=== PATIENT | female | born 1960 | race Caucasian/White ===

== ENCOUNTER 2022-04-19 08:59 | Outpatient (CLI) | payer BC, SELFPAY ==
[2022-04-19 09:55] LABS: Hematocrit 43.2 % (33.0-51.0); Hemoglobin* 14.3 gm/dL (12.0-16.0); Mean Corpuscular HGB Conc 33 gm/dL (32-36); Mean Corpuscular Hemoglobin 30 pg (26-34); Mean Corpuscular Volume 90 fL (80-100); Platelet Count* 339 K/uL (140-440); Red Blood Count 4.79 m/uL (4.00-5.20); White Blood Count* 8.98 K/uL (4.50-11.00)
[2022-04-19 10:00] LABS: Slide Review Reflex No
[2022-04-19 16:10] LABS: Albumin* 4.6 g/dL (3.3-5.0); Chloride* 94 mmol/L (96-114); Sodium* 135 mmol/L (135-149)
[2022-04-19 16:11] LABS: Potassium* 3.4 mmol/L (3.6-5.1)
[2022-04-19 16:12] LABS: Cholesterol* 234 mg/dL (90-199)
[2022-04-19 16:13] LABS: Alkaline Phosphatase* 95 U/L (40-150); Aspartate Amino Transferase* 25 U/L (12-35); Bilirubin Total* 0.5 mg/dL (0.1-1.5); Blood Urea Nitrogen* 14 mg/dL (7-30); Carbon Dioxide* 32 mmol/L (20-32); Creatinine* 0.8 mg/dL (0.5-1.5); Estimated Glomerular Filt Rate 85 ml/min; Glucose* 96 mg/dL (60-115); Total Protein* 7.9 g/dL (6.0-8.3); Triglycerides* 329 mg/dL (40-149)
[2022-04-19 16:14] LABS: Alanine Aminotransferase* 32 U/L (4-35); Calcium* 9.8 mg/dL (8.4-10.6); HDL Cholesterol* 41 mg/dL (>=50); LDL Cholesterol Calculated 127 mg/dL (<100)
[2022-04-19 16:39] LABS: TSH With Reflex to FT4* 0.764 uIU/mL (0.270-4.200)
== END 2022-04-19 09:00 | disposition home or self-care (01) ==
PROVIDERS: PCP Physician Assistant Medical; Visit Provider Physician Assistant Medical
DX: Z01.419 Encounter for gynecological examination (general) (routine) without abnormal findings (principal); E78.5 Hyperlipidemia, unspecified; I10 Essential (primary) hypertension; N39.0 Urinary tract infection, site not specified; Z13.0 Encounter for screening for diseases of the blood and blood-forming organs and certain disorders involving the immune mechanism; Z13.1 Encounter for screening for diabetes mellitus
CPT/HCPCS: 80053; 80061; 84443; 85027

== ENCOUNTER 2022-07-06 14:15 | Outpatient (CLI) | payer BC, SELFPAY ==
--- NOTE | 2022-07-06 14:40 | CRLHL7_ITS ---
For Patients: As a result of the Century Cures Act, medical imaging exams and procedure reports are released immediately into your electronic medical record. You may view this report before your referring provider. If you have questions, please contact your health care provider. BILATERAL SCREENING MAMMOGRAM WITH COMPUTER-AIDED DETECTION AND TOMOSYNTHESIS TECHNIQUE: CC and MLO views were obtained. These mammographic images have been obtained using full-field digital technique. These mammographic images were interpreted with the benefit of computer-aided detection. Breast Tomosynthesis was used in this interpretation. COMPARISON FILM: 04/20/21, 04/08/19, 10/10/16. FINDINGS: The breasts are heterogeneously dense, which may obscure small masses IMPRESSION: There is no radiographic evidence for malignancy. ASSESSMENT: BI-RADS Category 1: Negative RECOMMENDATION: Routine screening mammogram in 1 year. A lay language report of this examination will be provided to the patient. Clarence Tadeo M.D. Diagnostic Radiologist [email or web address] JERAMY/Dictated by: Clarence Tadeo MD @ 07/09/2022 11:05:00 AM (Electronically Signed)
== END 2022-07-06 14:16 | disposition home or self-care (01) ==
LOC: MAMMO 14:18
PROVIDERS: PCP Physician Assistant Medical; Visit Provider Physician Assistant Medical
DX: Z12.31 Encounter for screening mammogram for malignant neoplasm of breast (principal); R92.2 Inconclusive mammogram
CPT/HCPCS: 77063; 77067

== ENCOUNTER 2023-05-02 08:28 | Outpatient (CLI) | payer BC, SELFPAY | END 2023-05-02 08:29 | disposition home or self-care (01) | LOC: NFLDREF 05-03 11:52 | PROVIDERS: PCP Physician Assistant Medical; Referring Provider Physician Assistant Medical; Visit Provider Physician Assistant Medical | DX: Z00.00 Encounter for general adult medical examination without abnormal findings (principal); E78.5 Hyperlipidemia, unspecified; I10 Essential (primary) hypertension; Z13.29 Encounter for screening for other suspected endocrine disorder | CPT/HCPCS: 80053; 80061; 84443 ==

== ENCOUNTER 2023-07-17 15:04 | Outpatient (CLI) | payer BC, SELFPAY ==
--- NOTE | 2023-07-17 15:20 | CRLHL7_ITS ---
For Patients: As a result of the Century Cures Act, medical imaging exams and procedure reports are released immediately into your electronic medical record. You may view this report before your referring provider. If you have questions, please contact your health care provider. BILATERAL DIGITAL SCREENING MAMMOGRAM WITH TOMOSYNTHESIS AND COMPUTER-AIDED DETECTION CLINICAL HISTORY: Routine screening exam. COMPARISON: 07/06/2022, 04/20/2021, 04/08/2019. TECHNIQUE: Digital mammogram in CC and MLO projections including computer-aided detection (CAD). Tomosynthesis utilized. BREAST COMPOSITION: The breasts are heterogeneously dense, which may obscure small masses. FINDINGS: RIGHT Breast: No suspicious findings LEFT Breast: Focal asymmetric density upper outer quadrant 11 cm from the nipple. IMPRESSION: LEFT breast asymmetry/mass. RECOMMENDATIONS: Additional mammographic views of the LEFT breast including 3D spot compression CC/MLO. LEFT breast ultrasound may also be required. BI-RADS Category 0: Incomplete: Need Additional Imaging Evaluation and/or Prior Mammograms for Comparison [facility] will contact the patient for follow-up. A lay language report of this examination will be provided to the patient. Dictated by Clarence Tadeo MD @ 07/18/2023 11:44:19 AM jj/Dictated by: Clarence Tadeo MD @ 07/18/2023 11:44:00 AM (Electronically Signed)
== END 2023-07-17 15:05 | disposition home or self-care (01) ==
LOC: MAMMO 15:05
PROVIDERS: PCP Physician Assistant Medical; Visit Provider Physician Assistant Medical
DX: Z12.31 Encounter for screening mammogram for malignant neoplasm of breast (principal); N63.20 Unspecified lump in the left breast, unspecified quadrant; R92.2 Inconclusive mammogram
CPT/HCPCS: 77063; 77067

== ENCOUNTER 2023-07-26 09:25 | Outpatient (CLI) | payer BC, SELFPAY ==
--- NOTE | 2023-07-26 09:45 | CRLHL7_ITS ---
For Patients: As a result of the Cures Act, medical imaging exams and procedure reports are released immediately into your electronic medical record. You may view this report before your referring provider. If you have questions, please contact your health care provider. DIGITAL DIAGNOSTIC LEFT MAMMOGRAM USING TOMOSYNTHESIS AND COMPUTER-AIDED DETECTION LEFT BREAST ULTRASOUND CLINICAL HISTORY: LEFT breast mass/asymmetry. COMPARISON: 07/17/2023, 07/06/2022, 04/20/2021, 04/08/2019. TECHNIQUE: Digital LEFT mammogram in two projections. Tomosynthesis and CAD utilized. Real-time ultrasound imaging of LEFT breast with imaging documentation. BREAST COMPOSITION: The breast is heterogeneously dense, which may obscure small masses. FINDINGS: 3D spot compression CC/MLO LEFT breast mammogram images submitted. Persistent nodular density within the upper outer quadrant breast. No architectural distortion. Targeted LEFT breast ultrasound performed at 1 o`clock 12 cm from the nipple. In this location there is a solid hypoechoic circumscribed nodule with increased through-transmission measuring 8 x 4 x 8 millimeters at mid depth. IMPRESSION: Benign fibroadenoma LEFT breast 1 o`clock 12 cm from the nipple measuring 8 millimeters. No suspicious findings. No evidence of malignancy. RECOMMENDATIONS: Annual BILATERAL screening mammography. Results and recommendations discussed with the patient. BI-RADS Category 2: Benign A lay language report of this examination will be provided to the patient. Dictated by Clarence Tadeo MD @ 07/26/2023 11:38:41 AM jj/Dictated by: Clarence Tadeo MD @ 07/26/2023 11:38:00 AM (Electronically Signed)
--- NOTE | 2023-07-26 10:15 | CRLHL7_ITS ---
For Patients: As a result of the Cures Act, medical imaging exams and procedure reports are released immediately into your electronic medical record. You may view this report before your referring provider. If you have questions, please contact your health care provider. PLEASE SEE DIGITAL DIAGNOSTIC LEFT MAMMOGRAM PERFORMED SAME DAY CRL:[email or web address] lopez/Dictated by: Clarence Tadeo MD @ 07/26/2023 11:38:00 AM (Electronically Signed)
== END 2023-07-26 09:26 | disposition home or self-care (01) ==
LOC: MAMMO 09:26
PROVIDERS: PCP Physician Assistant Medical; Visit Provider Physician Assistant Medical
DX: N63.20 Unspecified lump in the left breast, unspecified quadrant (principal); R92.8 Other abnormal and inconclusive findings on diagnostic imaging of breast; R92.2 Inconclusive mammogram
CPT/HCPCS: 76642; 77065; G0279

== ENCOUNTER 2024-01-10 20:21 | Emergency (ER) | payer BC, SELFPAY ==
[2024-01-10 20:35] VITALS: BP 150/77; PULSE 70; RESP 18; TEMP 36; O2SAT 96; BMI 29.0
--- NOTE | 2024-01-10 20:44 | ED.GENADULT ---
HPI - General Adult General Chief complaint: Eye Problems Stated complaint: L eye drooping/irritation Time Seen by Provider: 01/10/24 20:44 History of Present Illness HPI narrative: Pt c/o droopy left eye. Has been itching her eye all day . Notes seasonal allergies. Denies eye pain . Eye is more red than normal . Also having a runny nose. 63-year-old woman presenting to the emergency department with concern of itching and drooping left eye. Does acknowledge seasonal allergies and rhinorrhea. Is not having any eye or head pain. No rashes. No fever. History of chickenpox. No loss of sensation or weakness. No visual changes. Related Data Previous Rx's ?Medication ?Instructions ?Recorded atenolol 25 mg tablet 25 mg PO QDAY #90 tabs 05/09/23 chlorthalidone 25 mg tablet 25 mg PO QDAY #90 tabs 05/09/23 fluticasone propionate 50 1 spray intranasal BID #16 grams 05/09/23 mcg/actuation nasal spray,suspension Allergies Allergy/AdvReac Type Severity Reaction Status Date / Time No Known Drug Allergies Allergy Verified 01/20/24 13:29 Review of Systems Status of ROS: Reports: 6 or more systems reviewed and unremarkable except as noted in History and below [facility] Medical History Influenza A ?J10.1 - Influenza due to other identified influenza virus with other respiratory manifestations (ICD-10) Cough ?R05.9 - Cough, unspecified (ICD-10) Seasonal allergies ?J30.2 - Other seasonal allergic rhinitis (ICD-10) Family History Mother Lung cancer Son Crohn disease Social History Narrative: (Social history: The patient is . She reports feeling safe in her marriage in at home. She has 1 biological son ( 27 yo). She adopted a daughter from [facility] ( jennie). Nonsmoker. Occasional alcohol use. 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 Smoking Status: Never smoker Do you use any of these nicotine containing products: None Second hand tobacco smoke exposure: No How often do you have a drink containing alcohol: never How often do you have six or more drinks on one occasion: Never AUDIT-C Alcohol total score: 0 Non-prescribed substance use: denies use Little interest or pleasure in doing things: not at all Feeling down, depressed, or hopeless: not at all service: No Exam Narrative: Exam Narrative: Accompanied by . Pleasant. Clearly with a little difficulty opening and closing left eye. Extraocular movements are full and intact. Pupils are brisk and equal. Head is atraumatic. I do not see any swelling or erythema or rash. Ear canals are free of lesions. Has very subtle loss of motor on the left side of the face. Full strength 5 throughout. Well-perfused. Heart in regular rate and rhythm. Const: Vital Signs, click to edit/add: Vital Signs - 24 hr 01/10/24 20:35 Temperature 96.8 F L Pulse Rate [Pulse Oximeter] 70 Respiratory Rate 18 Blood Pressure [Ri ght Upper Arm] 150/77 H Pulse Oximetry 96 Oxygen Delivery Me thod Room Air Documenting provider has reviewed patient's vital signs: yes Course Vital Signs Vital signs: Initial Vital Signs Temperature 96.8 F L 01/10/24 20:35 Temperature Source Temporal Artery Scan 01/10/24 20:35 Pulse Rate 70 01/10/24 20:35 Pulse Rhythm Regular 01/10/24 20:35 Pulse Strength 3+ Normal 01/10/24 20:35 Respiratory Rate 18 01/10/24 20:35 Blood Pressure 150/77 H 01/10/24 20:35 Blood Pressure Mean 101 01/10/24 20:35 Blood Pressure Position Sitting 01/10/24 20:35 Pulse Oximetry 96 01/10/24 20:35 Oxygen Delivery Method Room Air 01/10/24 20:35 Vital Signs Temperature 96.8 F L 01/10/24 20:35 Pulse Rate 70 01/10/24 20:35 Respiratory Rate 18 01/10/24 20:35 Blood Pressure 150/77 H 01/10/24 20:35 Pulse Oximetry 96 01/10/24 20:35 Oxygen Delivery Method Room Air 01/10/24 20:35 Temperature 97.8 F 01/10/24 21:32 Pulse Rate 75 01/10/24 21:32 Respiratory Rate 18 01/10/24 21:32 Blood Pressure 145/66 H 01/10/24 21:32 Pulse Oximetry 96 01/10/24 21:31 Oxygen Delivery Method Room Air 01/10/24 21:31 Medications Administered Medications: Discontinued Medications Generic Name Dose Route Start Last Admin Trade Name Juan PRKimo Reason Stop Dose Admin Valacyclovir HCl 1,000 mg 01/10/24 21:15 01/10/24 21:28 Valacyclovir Hcl 500 Mg Tablet PO 01/10/24 21:16 1,000 mg ONCE ONE Administration Medical Decision Making MDM Narrative Medical decision making narrative: 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 Differential does include cerebrovascular event. Does While symptoms are subtle I think this itchy prodrome also is consistent with onset of Lopez's palsy. Incidentally did discuss this case with [facility]. They concur that this is most likely the diagnosis. Do not think further evaluation is necessary at this time. See patient discharge plan for further discussion Medical Records Medical records reviewed: Yes I reviewed the patient's medical records Discharge Plan Discharge Clinical Impression: Lopez's palsy Patient Disposition: Home w/ Parent or Adult Condition: Stable Additional Instructions: Usually symptoms reach a maximum by 5 days and start to see resolution within a couple weeks. Usually the prednisone is dosed twice daily in this diagnosis. I suppose you could take the 2nd dose in early afternoon or if you do find it to stimulating, could just take all as one dose in the morning. Consider getting an eye patch for wearing overnight. Also since having trouble blinking, keep your eye moist throughout the day and before bed with eye ointment or Lacri-Lube or refresh p.m. eyedrops Prescriptions: No Action atenolol 25 mg tablet 25 mg PO QDAY Qty: 90 3RF chlorthalidone 25 mg tablet 25 mg PO QDAY Qty: 90 3RF fluticasone propionate 50 mcg/actuation spray,suspension 1 spray intranasal BID Qty: 16 3RF Rx Instructions: administer into each nostril Follow Up/Referrals: Shanda Lee PA-C [Primary Care Provider] - Stand Alone Forms: [employer] Info Instructions
[2024-01-10] MEDS: VALACYCLOVIR HCL 500 MG TABLET 1000 MG PO (21:28)
[2024-01-10 21:31] VITALS: BP 145/66; PULSE 75; RESP 18; TEMP 36.6; O2SAT 96
[2024-01-10 21:32] VITALS: BP 145/66; PULSE 75; RESP 18; TEMP 36.6
== END 2024-01-10 21:32 | disposition home or self-care (01) ==
LOC: ED 21:26
PROVIDERS: Emergency Provider Family Medicine; PCP Physician Assistant Medical
DX: G51.0 Bell's palsy (principal)
CPT/HCPCS: 99283; 99284; A9270

== ENCOUNTER 2024-04-11 10:03 | Outpatient (CLI) | payer BC, SELFPAY | END 2024-04-11 10:04 | disposition home or self-care (01) | LOC: NFLDREF 04-14 14:47 | PROVIDERS: PCP Physician Assistant Medical; Referring Provider Physician Assistant Medical; Visit Provider Physician Assistant | DX: R30.0 Dysuria (principal); B00.1 Herpesviral vesicular dermatitis | CPT/HCPCS: 87086; 87186 ==

== ENCOUNTER 2024-07-09 08:47 | Outpatient (CLI) | payer BC, SELFPAY | END 2024-07-09 08:48 | disposition home or self-care (01) | LOC: NFLDREF 07-13 03:03 | PROVIDERS: PCP Physician Assistant Medical; Referring Provider Physician Assistant Medical; Visit Provider Physician Assistant Medical | DX: E78.5 Hyperlipidemia, unspecified (principal); I10 Essential (primary) hypertension; Z13.29 Encounter for screening for other suspected endocrine disorder | CPT/HCPCS: 80048; 80061; 84443 ==

== ENCOUNTER 2024-07-31 13:41 | Outpatient (CLI) | payer BC, SELFPAY ==
--- NOTE | 2024-07-31 13:40 | CRLHL7_ITS ---
For Patients: As a result of the Century Cures Act, medical imaging exams and procedure reports are released immediately into your electronic medical record. You may view this report before your referring provider. If you have questions, please contact your health care provider. BILATERAL SCREENING MAMMOGRAM WITH COMPUTER-AIDED DETECTION AND TOMOSYNTHESIS TECHNIQUE: CC and MLO views were obtained. These mammographic images have been obtained using full-field digital technique. These mammographic images were interpreted with the benefit of computer-aided detection. Breast tomosynthesis was used in this interpretation. COMPARISON FILM: 07/17/23, 07/06/22, 04/20/21. FINDINGS: The breasts are heterogeneously dense, which may obscure small masses. IMPRESSION: There is no radiographic evidence for malignancy. ASSESSMENT: BI-RADS Category 1: Negative RECOMMENDATION: Routine screening mammogram in 1 year. A lay language report of this examination will be provided to the patient. CLARENCE GONZALEZ M.D. Diagnostic Radiologist [email or web address] Transcribed: 08/03/2024, 1:[address]/Dictated by: Clarence Gonzalez MD @ 08/03/2024 9:02:00 AM (Electronically Signed)
== END 2024-07-31 13:42 | disposition home or self-care (01) ==
LOC: MAMMO 13:42
PROVIDERS: PCP Physician Assistant Medical; Visit Provider Physician Assistant Medical
DX: Z12.31 Encounter for screening mammogram for malignant neoplasm of breast (principal); R92.333 Mammographic heterogeneous density, bilateral breasts
CPT/HCPCS: 77063; 77067

== ENCOUNTER 2025-05-13 08:39 | Outpatient (CLI) | payer BC, SELFPAY | END 2025-05-13 08:40 | disposition home or self-care (01) | LOC: NFLDREF 05-20 17:57 | PROVIDERS: PCP Physician Assistant Medical; Referring Provider Physician Assistant Medical; Visit Provider Physician Assistant Medical | DX: E78.5 Hyperlipidemia, unspecified (principal); Z13.9 Encounter for screening, unspecified | CPT/HCPCS: 80053; 80061; 84443 ==

== ENCOUNTER 2025-06-04 08:56 | Outpatient (CLI) | payer BC, SELFPAY ==
[2025-06-04 16:21] LABS: Chlamydia DNA Amplified* NOT DETECTED (No Detected); GC DNA Amplified* NOT DETECTED (No Detected)
[2025-06-09 21:07] LABS: HPV Source Cervix
[2025-06-11 08:54] LABS: Pap Test Digital Imaging Done
== END 2025-06-04 08:57 | disposition home or self-care (01) ==
PROVIDERS: PCP Physician Assistant Medical; Visit Provider Physician Assistant Medical
DX: Z00.00 Encounter for general adult medical examination without abnormal findings (principal)
CPT/HCPCS: 87491; 87591; 87624; 87625; 88141; 88142; 88175